=== PATIENT | female | born 1960 | race Caucasian/White ===

== ENCOUNTER 2020-09-22 23:08 | Emergency (ER) | payer OTHER ==
[2020-09-22] MEDS ORDERED: ACETAMINOPHEN 325 MG TABLET PO ONE (23:58)
[2020-09-22] MEDS ORDERED: ONDANSETRON 4 MG TAB.RAPDIS PO ONE (23:59)
--- NOTE | 2020-09-22 23:59 | ER Document Report ---
ED Medical Screen (RME) - General Stated Complaint: COVID + PERSISTANT COUGH Time Seen by Provider: 09/22/20 23:52 Primary Care Provider: SHANITA FRANCOIS MD [Primary Care Provider] - Follow up as needed Mode of Arrival: Ambulatory Information source: Patient Notes: HPI; 60-year-old female past medical history significant for hypertension, hypothyroidism presents to the emergency room complaining of worsening cough with shortness of breath that started 2 weeks ago. Patient states she was diagnosed with positive Covid 9 days ago. Had not had any known COVID-19 exposure. States was prescribed steroids, Mucinex, and an antibiotic but she does not recall the name of the antibiotic. States she finished her antibiotics yesterday. Has not been improving. Complains of nausea but no vomiting. Denies any chest pain. Denies any history of PEs or DVTs. PE: Alert and oriented x3. Lungs scattered rhonchi no wheezes no rales. Heart: Regular rate rhythm without murmurs, rubs, gallops. I have greeted and performed a rapid initial assessment of this patient. A comprehensive ED assessment and evaluation of the patient, analysis of test results and completion of the medical decision making process will be conducted by additional ED providers. I have specifically instructed the patient or family members with the patient to immediately return to any nursing staff should anything change in the patient's condition or with their chief complaint. TRAVEL OUTSIDE OF THE [place] IN LAST 30 DAYS: No Physical Exam - Vital signs Vitals: Temp Pulse Resp BP Pulse Ox 98.3 F 80 18 107/67 96 09/22/20 23:17 09/22/20 23:17 09/22/20 23:17 09/22/20 23:17 09/22/20 23:17 Course - Vital Signs Vital signs: Temp Pulse Resp BP Pulse Ox 98.3 F 80 18 107/67 96 09/22/20 23:17 09/22/20 23:17 09/22/20 23:17 09/22/20 23:17 09/22/20 23:17 Doctor's Discharge - Discharge Referrals: SHANITA FRANCOIS MD [Primary Care Provider] - Follow up as needed
[2020-09-23 00:26] LABS: ABSOLUTE EOSINOPHILS # (AUTO) 0.1 10^3/uL (0.0-0.6); ABSOLUTE LYMPHOCYTES (AUTO) 1.9 10^3/uL (0.5-4.7); ABSOLUTE MONOCYTES (AUTO) 0.8 10^3/uL (0.1-1.4); ABSOLUTE NEUT (AUTO) 4.1 10^3/uL (1.7-8.2); BASOPHILS % (AUTO) 0.7 % (0-2); EOSINOPHILS % (AUTO) 1.6 % (0-6); HEMOGLOBIN 11.8 g/dL (12.0-15.5); LYMPHOCYTES % (AUTO) 27.7 % (13-45); MEAN CORPUSCULAR HEMOGLOBIN 29.8 pg (27.0-33.4); MEAN CORPUSCULAR HGB CONC 34.6 g/dL (32.0-36.0); MEAN CORPUSCULAR VOLUME 86 fl (80-97); MONOCYTES % (AUTO) 11.1 % (3-13); PLATELET COUNT 184 10^3/uL (150-450); RED BLOOD COUNT 3.96 10^6/uL (3.72-5.28); RED CELL DISTRIBUTION WIDTH 13.9 % (11.5-14.0); SEGMENTED NEUTROPHILS % (AUTO) 58.9 % (42-78); TOTAL CELLS COUNTED % (AUTO) 100 %; WHITE BLOOD COUNT 6.9 10^3/uL (4.0-10.5)
[2020-09-23 00:50] LABS: ALBUMIN 3.4 g/dL (3.5-5.0); ALKALINE PHOSPHATASE 69 U/L (38-126); ANION GAP 8 (5-19); ASPARTATE AMINO TRANSFERASE 26 U/L (14-36); BILIRUBIN,DIRECT 0.1 mg/dL (0.0-0.4); BILIRUBIN,TOTAL 0.3 mg/dL (0.2-1.3); BLOOD UREA NITROGEN 12 mg/dL (7-20); CALCIUM 8.5 mg/dL (8.4-10.2); CARBON DIOXIDE 26 mmol/L (22-30); CHLORIDE 102 mmol/L (98-107); GLUCOSE 134 mg/dL (75-110); POTASSIUM 3.4 mmol/L (3.6-5.0); TOTAL PROTEIN 5.9 g/dL (6.3-8.2)
[2020-09-23] MEDS ORDERED: DEXAMETHASONE SOD PHOSPHATE INJ 4 MG/1 ML VIAL IM ONE (00:52)
[2020-09-23] MEDS ORDERED: IPRATROPIUM/ALBUTEROL 0.5-2.5 MG/3 ML AMPUL NEB ONE (00:52)
--- NOTE | 2020-09-23 00:55 | ER Document Report ---
ED General - General Chief Complaint: Flu Symptoms Stated Complaint: COVID + PERSISTANT COUGH Time Seen by Provider: 09/22/20 23:52 Primary Care Provider: SHANITA FRANCOIS MD [Primary Care Provider] - Follow up as needed Mode of Arrival: Ambulatory Information source: Patient Notes: Patient is a 60-year-old female coming in today with bad cough and shortness of breath. Documented Covid last week. She does not have any chronic lung disease. She did a course of antibiotics and steroids already. Still having a terrible cough. Some low-grade fever today. TRAVEL OUTSIDE OF THE [place] IN LAST 30 DAYS: No - Related Data Home Medications: steroids, robitussin, atenolol, levothyroxine, celexa Past Medical History - General Information source: Patient - Social History Smoking Status: Never Smoker Family History: None Review of Systems - Review of Systems Notes: Constitutional: Positive for low-grade fevers and chills EENT: No eye redness. No eye pain. No ear pain. No sore throat. Cardiovascular: No chest pain. No palpitations. Respiratory: Positive for cough Gastrointestinal: No abdominal pain. No nausea, vomiting, or diarrhea. Genitourinary: Atraumatic. No lesions. No pain. No discharge. Musculoskeletal: Atraumatic. No swelling. No deformities. Skin: No rash or lesions. Lymphatic: No swollen lymph nodes. Neurologic: No headache. No syncope. Psychiatric: No suicidal or homicidal ideation. Physical Exam - Vital signs Vitals: Temp Pulse Resp BP Pulse Ox 98.3 F 80 18 107/67 96 09/22/20 23:17 09/22/20 23:17 09/22/20 23:17 09/22/20 23:17 09/22/20 23:17 - Notes Notes: General: Well-developed, well-nourished. In no acute distress. Non-toxic appearing. Cardiac: Well-perfused. Regular rate and rhythm. No murmurs, rubs, or gallops. Pulmonary: Breath sounds diminished bilaterally Abdominal: Non-distended. Non-rigid. Bowels sounds are present in all four quadrants. No guarding or rebound. HEENT: Head is atraumatic. Conjunctivae not reddened. No tearing. PERRL. EOMI. Orbits atraumatic. No periorbital swelling or erythema. Oropharynx is without erythema, swelling, or exudates. Neck: Supple. No adenopathy. No meningismus. Dermatologic: Warm with good turgor. No rash. Atraumatic. Chest: Atraumatic. No chest wall tenderness to palpation. Musculoskeletal: Moves all extremities well. No range of motion deficits. no muscular or joint tenderness. No paraspinal muscle tenderness. no midline spinal tenderness or step-off. Genitourinary: Examination deferred Neurologic: No gross neurologic deficits. Psychiatric: Normal mood. Course - Re-evaluation Re-evalutation: 09/23/20 01:35 X-ray shows slight infiltrate in the left midlung. Patient has normal white count. Satting well. Feeling better after neb treatments. She has a history of Covid that she is being treated for. We will give her IV Rocephin here and then send her home on Zithromax 500 daily for 5 days. We will also give her an albuterol inhaler and Hycodan cough syrup. - Vital Signs Vital signs: Temp Pulse Resp BP Pulse Ox 98.3 F 80 18 107/67 96 09/22/20 23:17 09/22/20 23:17 09/22/20 23:17 09/22/20 23:17 09/22/20 23:17 - Laboratory Result Diagrams: 09/23/20 00:18 09/23/20 00:18 Laboratory results interpreted by me: 09/23/20 09/23/20 00:18 00:18 Hgb 11.8 L Hct 34.0 L Sodium 136.0 L Potassium 3.4 L Glucose 134 H Total Protein 5.9 L Albumin 3.4 L - Diagnostic Test Radiology reviewed: Reports reviewed Discharge - Discharge Clinical Impression: COVID-19 Pneumonia Qualifiers: Pneumonia type: due to unspecified organism Laterality: left Lung location: unspecified part of lung Qualified Code(s): J18.9 - Pneumonia, unspecified organism Condition: Good Disposition: HOME, SELF-CARE Instructions: COVID-19 Guidance for Persons Under Investigation, Oral Narcotic Medication ([facility]), Pneumonia ([facility]) Additional Instructions: Your chest x-ray shows a small pneumonia developing in your left lung. Your lab results look good. Your vital signs are good. We are going to put you back on antibiotics for the next 5 days. We will also put you on an inhaler 2 puffs every 4 hours as needed for cough or shortness of breath. Hycodan cough syrup 1 teaspoon every 4-6 hours as needed for intractable cough. Follow-up with your primary care doctor the next 1 to 2 days. Prescriptions: Hydrocodone Bit/Homatropine [Hycodan Syrup 5-1.5 mg/5 ml Ud Cup] 5 ml PO Q6HP PRN #120 ml PRN Reason: Azithromycin 500 mg PO DAILY 5 Days #10 tablet Albuterol Sulfate [Proair HFA Inhalation Aerosol 8.5 gm MDI] 2 puff IH Q4H PRN #1 mdi PRN Reason: Referrals: SHANITA FRANCOIS MD [Primary Care Provider] - Follow up as needed
--- NOTE | 2020-09-23 01:14 | RADIOLOGY REPORT (SQ) ---
EXAM DESCRIPTION: Site: CHEST SINGLE VIEW RP: XR CHEST 1 VIEW CLINICAL HISTORY: 60 years Female; cough; COMPARISON: None. FINDINGS: Lungs: There is a mild groundglass density in the left midlung field. Lungs are otherwise clear. No pneumothorax or pleural effusion. Mediastinum: Mediastinum is within normal limits for this positioning. Bones: Bony structures are unremarkable. IMPRESSION: 1. Mild infiltrate in the left midlung, suspicious for early/mild pneumonia
[2020-09-23] MEDS ORDERED: CEFTRIAXONE 1 GM/D5W RTU 1 GM/50 ML RTUPB IV ONE (01:35)
[2020-09-23] MEDS ORDERED: CEFTRIAXONE INJ 1000 MG VIAL IM ONE (01:48)
[2020-09-23] MEDS ORDERED: LIDOCAINE 1% INJ-PF (10 MG/ML) 30 ML SDV NEB ONE (01:48)
[2020-09-23 02:54] VITALS: BP 121/62
--- NOTE | 2020-09-23 07:31 | EKG REPORT ---
SEVERITY:- BORDERLINE ECG - SINUS RHYTHM BORDERLINE T ABNORMALITIES, ANTERIOR LEADS : Confirmed by: Stephon Dent MD 23-Sep-2020 07:31:03
== END 2020-09-23 02:56 | disposition home or self-care (01) ==
LOC: ER 23:08
DX: U07.1 COVID-19 (principal); J18.9 Pneumonia, unspecified organism; R05 Cough; R06.02 Shortness of breath; R50.9 Fever, unspecified; Z79.899 Other long term (current) drug therapy
CPT/HCPCS: 93005; 94640; 99285; 96372; 36415; 87040; 85025; 80053; 84484; 71045; 93010; J1100; S0119; J3490; J0696